=== PATIENT | male | born 1985 | race Hispanic/Latino ===

== ENCOUNTER 2022-10-17 15:50 | Inpatient (IN) | payer OTHER ==
[~2022-10-17] VITALS: Ht 167.6 cm; Wt 144.2 kg
[2022-10-17 16:57] LABS: BASOPHILS # (AUTO) 0.06 K/uL (0.00-0.20); BASOPHILS % (AUTO) 0.3 % (0.0-5.0); EOSINOPHILS # (AUTO) 0.11 K/uL (0.00-0.70); EOSINOPHILS % (AUTO) 0.5 % (0.0-8.0); IMMATURE GRANULOCYTE ABSOLUTE 0.34 K/uL (0-1); LYMPHOCYTES % (AUTO) 5.1 % (21.0-51.0); MEAN CORPUSCULAR HGB CONC 32.8 g/dL (32.0-36.0); MEAN CORPUSCULAR VOLUME 97.7 fL (79-99); MONOCYTES # (AUTO) 1.4 K/uL (0.1-1.0); MONOCYTES % (AUTO) 6.6 % (3.0-13.0); NEUTROPHILS # (AUTO) 17.5 K/uL (1.8-7.7); NEUTROPHILS % (AUTO) 85.8 % (40.0-77.0); NUCLEATED RED BLOOD CELLS 0.3 % (0.0-0.19); PLATELET COUNT (AUTO) 258 K/uL (130-400); RED BLOOD CELL COUNT(AUTO) 2.56 MIL/uL (4.50-6.20); WHITE BLOOD COUNT (AUTO) 20.4 K/uL (4.8-10.8)
[2022-10-17 17:17] LABS: ALBUMIN 1.3 g/dL (3.5-5.0); CREATININE 7.1 mg/dL (0.5-1.5); POTASSIUM 5.2 mmol/L (3.5-5.1); TOTAL PROTEIN, SERUM 7.5 g/dL (6.0-8.3)
[2022-10-17 17:23] LABS: BILIRUBIN,TOTAL 24.6 mg/dL (0.2-1.0)
[2022-10-17 18:03] LABS: INR 1.92 (0.85-1.15); PROTHROMBIN TIME 21.3 SEC (9.6-11.6)
[2022-10-17 18:05] LABS: PARTIAL THROMBOPLASTIN TIME 45.1 SEC (26.3-35.5)
[2022-10-17] MEDS ORDERED: NA ZIRCON CYCLOSIL(LOKELMA 10GM) PO ONE (19:30)
[2022-10-17] MEDS ORDERED: MAGNESIUM 2GM PREMIX 50ML 50 ML IV PRN (21:00)
[2022-10-17] MEDS ORDERED: HYDROCODONE/ACETAMINOPHEN 5/325 MG TAB PO PRN (21:00)
[2022-10-17] MEDS ORDERED: ONDANSETRON 4MG INJ IV PRN (21:00)
[2022-10-17] MEDS ORDERED: ACETAMINOPHEN 325 MG TAB PO PRN ×2 (21:00)
[2022-10-17] MEDS ORDERED: SODIUM CHLORIDE 1,000 MG TAB PO SCH (22:00)
[2022-10-17 23:00] VITALS: O2SAT 97
[2022-10-18] VITALS (8 sets, daily range): BP systolic 102–126; BP diastolic 52–85; PULSE 67–87; RESP 18–20; O2SAT 97–98
[2022-10-18 04:39] LABS: MAGNESIUM 2.4 mg/dL (1.80-2.40); PHOSPHORUS 8.9 mg/dL (2.5-4.9); POTASSIUM 5.1 mmol/L (3.5-5.1)
[2022-10-18 04:43] LABS: CREATININE 7.9 mg/dL (0.5-1.5)
[2022-10-18 05:35] LABS: BASOPHILS # (AUTO) 0.05 K/uL (0.00-0.20); BASOPHILS % (AUTO) 0.2 % (0.0-5.0); EOSINOPHILS # (AUTO) 0.12 K/uL (0.00-0.70); EOSINOPHILS % (AUTO) 0.6 % (0.0-8.0); IMMATURE GRANULOCYTE ABSOLUTE 0.33 K/uL (0-1); LYMPHOCYTES # (AUTO) 1.1 K/uL (1.0-4.8); LYMPHOCYTES % (AUTO) 5.7 % (21.0-51.0); MEAN CORPUSCULAR HEMOGLOBIN 32.4 pg (27.0-33.0); MEAN CORPUSCULAR HGB CONC 32.2 g/dL (32.0-36.0); MEAN CORPUSCULAR VOLUME 100.5 fL (79-99); MONOCYTES # (AUTO) 1.6 K/uL (0.1-1.0); MONOCYTES % (AUTO) 7.8 % (3.0-13.0); NEUTROPHILS # (AUTO) 16.9 K/uL (1.8-7.7); NEUTROPHILS % (AUTO) 84.1 % (40.0-77.0); NUCLEATED RED BLOOD CELLS 0.3 % (0.0-0.19); PLATELET COUNT (AUTO) 164 K/uL (130-400); RED BLOOD CELL COUNT(AUTO) 2.04 MIL/uL (4.50-6.20); RED CELL DISTRIBUTION WIDTH 17.7 % (11.0-15.5); WHITE BLOOD COUNT (AUTO) 20.1 K/uL (4.8-10.8)
[2022-10-18 05:37] LABS: HEMATOCRIT 20.5 % (42-54)
[2022-10-18] MEDS: LACTULOSE 20 GM/30 ML UDCUP PO SCH ×2 (08:18→21:06)
[2022-10-18] MEDS: SODIUM CHLORIDE 1,000 MG TAB PO SCH (08:18)
[2022-10-18] MEDS ORDERED: PHARMACY COMMUNICATION MISC PRN (09:00)
[2022-10-18] MEDS ORDERED: PANTOPRAZOLE 40 MG TAB DR PO SCH (09:00)
[2022-10-18 09:15] LABS: HEMATOCRIT 22.3 % (42-54); MEAN CORPUSCULAR HEMOGLOBIN 32.1 pg (27.0-33.0); MEAN CORPUSCULAR HGB CONC 32.3 g/dL (32.0-36.0); MEAN CORPUSCULAR VOLUME 99.6 fL (79-99); NUCLEATED RED BLOOD CELLS 0.3 % (0.0-0.19); RED BLOOD CELL COUNT(AUTO) 2.24 MIL/uL (4.50-6.20); RED CELL DISTRIBUTION WIDTH 17.7 % (11.0-15.5); WHITE BLOOD COUNT (AUTO) 21.1 K/uL (4.8-10.8)
[2022-10-18 09:28] LABS: ABG BASE EXCESS -6.9 mmol/L (-2.0-3.0); ABG HCO3 16.4 mmol/L (21.0-28.0); ABG OXYGEN SATURATION 95.6 % (95.0-99.0); ABG PCO2 28 mmHg (35-48); ABG PH 7.388 (7.350-7.450); DEVICE COMMENT LR EDDIE, RN; PO2, ARTERIAL BG 77.8 mmHg (83.0-108.0); VENT MODE, BG RA (ROOM AIR)
[2022-10-18 09:32] LABS: ALANINE AMINOTRANSFERASE 64 U/L (12-78); ASPARTATE AMINOTRANSFERASE 108 U/L (10-37); CARBON DIOXIDE 17 mmol/L (21-32); GLOMERULAR FILTR. RATE CALC 8 mL/min (>90); GLUCOSE,RANDOM 82 mg/dL (70-105); SODIUM SERUM 116 mmol/L (136-145); TOTAL PROTEIN, SERUM 6.9 g/dL (6.0-8.3)
[2022-10-18 09:33] LABS: SALICYLATE < 2.8 mg/dL (2.8-20.0)
[2022-10-18 09:34] LABS: ACETAMINOPHEN < 1 mcg/mL (10-29)
[2022-10-18 09:35] LABS: BILIRUBIN,TOTAL 22.5 mg/dL (0.2-1.0); CHLORIDE 84 mmol/L (101-111); UREA NITROGEN, BLOOD 81 mg/dL (7-18)
[2022-10-18] MEDS: PANTOPRAZOLE 40 MG/VIAL IVP SCH ×2 (11:04→21:06)
[2022-10-18] MEDS: CEFTRIAXONE 2GM VIAL IVPB SCH (11:04)
[2022-10-18] MEDS: ALBUMIN (HUMAN) 5% 250 ML IV SCH (11:23)
[2022-10-18] MEDS: OCTREOTIDE ACETATE 500 MCG in 0.9%NACL 100ML 97.5 ML IV SCH (11:26)
[2022-10-18] MEDS: SEVELAMER HCL 800 MG TABLET PO SCH ×2 (12:40→17:07)
[2022-10-18] MEDS: MIDODRINE HCL 5 MG TABLET PO SCH ×3 (14:00→21:06)
[2022-10-18 22:16] LABS: HEPATITIS A IGM ANTIBODY Non-Reactive (Nonreactive); HEPATITIS B CORE IGM ANTIBODY Non-Reactive (Negative); HEPATITIS B SURFACE ANTIGEN Non-Reactive (Nonreactive); HEPATITIS C ANTIBODY Non-Reactive (Nonreactive)
[2022-10-19] VITALS (8 sets, daily range): BP systolic 99–136; BP diastolic 60–66; PULSE 80–90; RESP 18–20; O2SAT 97
[2022-10-19 05:13] LABS: BASOPHILS # (AUTO) 0.04 K/uL (0.00-0.20); BASOPHILS % (AUTO) 0.2 % (0.0-5.0); EOSINOPHILS # (AUTO) 0.07 K/uL (0.00-0.70); EOSINOPHILS % (AUTO) 0.3 % (0.0-8.0); HEMATOCRIT 22.8 % (42-54); IMMATURE GRANULOCYTE ABSOLUTE 0.55 K/uL (0-1); LYMPHOCYTES # (AUTO) 0.8 K/uL (1.0-4.8); LYMPHOCYTES % (AUTO) 3.6 % (21.0-51.0); MEAN CORPUSCULAR HEMOGLOBIN 32.7 pg (27.0-33.0); MEAN CORPUSCULAR HGB CONC 32.5 g/dL (32.0-36.0); MEAN CORPUSCULAR VOLUME 100.9 fL (79-99); MONOCYTES # (AUTO) 1.2 K/uL (0.1-1.0); MONOCYTES % (AUTO) 5.3 % (3.0-13.0); NEUTROPHILS # (AUTO) 19.6 K/uL (1.8-7.7); NEUTROPHILS % (AUTO) 88.1 % (40.0-77.0); NUCLEATED RED BLOOD CELLS 0.3 % (0.0-0.19); PLATELET COUNT (AUTO) 217 K/uL (130-400); RED BLOOD CELL COUNT(AUTO) 2.26 MIL/uL (4.50-6.20); RED CELL DISTRIBUTION WIDTH 17.5 % (11.0-15.5); WHITE BLOOD COUNT (AUTO) 22.2 K/uL (4.8-10.8)
[2022-10-19] MEDS: OCTREOTIDE ACETATE 500 MCG in 0.9%NACL 100ML 97.5 ML IV SCH (05:21)
[2022-10-19 05:34] LABS: ALBUMIN 1.3 g/dL (3.5-5.0); MAGNESIUM 2.5 mg/dL (1.80-2.40); PHOSPHORUS 9.5 mg/dL (2.5-4.9); POTASSIUM 5.3 mmol/L (3.5-5.1)
[2022-10-19 05:37] LABS: % IRON SATURATION 25.5 % (30-44)
[2022-10-19 05:42] LABS: BILIRUBIN,TOTAL 24.7 mg/dL (0.2-1.0); CREATININE 9.4 mg/dL (0.5-1.5)
[2022-10-19] MEDS: SEVELAMER HCL 800 MG TABLET PO SCH ×3 (08:12→17:15)
[2022-10-19] MEDS: SODIUM CHLORIDE 1,000 MG TAB PO SCH (08:47)
[2022-10-19] MEDS: MIDODRINE HCL 5 MG TABLET PO SCH ×3 (08:47→20:16)
[2022-10-19] MEDS: CEFTRIAXONE 2GM VIAL IVPB SCH (08:47)
[2022-10-19] MEDS: PANTOPRAZOLE 40 MG/VIAL IVP SCH ×2 (08:47→20:16)
[2022-10-19] MEDS: LACTULOSE 20 GM/30 ML UDCUP PO SCH ×2 (08:47→20:15)
[2022-10-19] MEDS: ALBUMIN (HUMAN) 5% 250 ML IV SCH (10:47)
[2022-10-19 21:18] LABS: SARS-CoV-2, RNA, NAAT NEGATIVE SARS CoV-2 (NEGATIVE)
[2022-10-20] VITALS (8 sets, daily range): BP systolic 103–137; BP diastolic 52–61; PULSE 78–85; RESP 16–20; O2SAT 95–97
[2022-10-20] MEDS: CHLORDIAZEPOXIDE HCL 25 MG CAP PO PRN (02:08)
[2022-10-20] MEDS: OCTREOTIDE ACETATE 500 MCG in 0.9%NACL 100ML 97.5 ML IV SCH (02:20)
[2022-10-20 04:26] LABS: BASOPHILS # (AUTO) 0.04 K/uL (0.00-0.20); BASOPHILS % (AUTO) 0.2 % (0.0-5.0); EOSINOPHILS # (AUTO) 0.15 K/uL (0.00-0.70); EOSINOPHILS % (AUTO) 0.6 % (0.0-8.0); HEMATOCRIT 22.7 % (42-54); IMMATURE GRANULOCYTE ABSOLUTE 0.73 K/uL (0-1); LYMPHOCYTES # (AUTO) 1.1 K/uL (1.0-4.8); LYMPHOCYTES % (AUTO) 4.4 % (21.0-51.0); MEAN CORPUSCULAR HEMOGLOBIN 32.3 pg (27.0-33.0); MEAN CORPUSCULAR HGB CONC 32.6 g/dL (32.0-36.0); MEAN CORPUSCULAR VOLUME 99.1 fL (79-99); MONOCYTES # (AUTO) 1.3 K/uL (0.1-1.0); MONOCYTES % (AUTO) 5.5 % (3.0-13.0); NEUTROPHILS # (AUTO) 20.9 K/uL (1.8-7.7); NEUTROPHILS % (AUTO) 86.3 % (40.0-77.0); NUCLEATED RED BLOOD CELLS 0.5 % (0.0-0.19); PLATELET COUNT (AUTO) 224 K/uL (130-400); RED BLOOD CELL COUNT(AUTO) 2.29 MIL/uL (4.50-6.20); RED CELL DISTRIBUTION WIDTH 17.5 % (11.0-15.5); WHITE BLOOD COUNT (AUTO) 24.2 K/uL (4.8-10.8)
[2022-10-20 04:40] LABS: INR 2.04 (0.85-1.15); PROTHROMBIN TIME 22.6 SEC (9.6-11.6)
[2022-10-20 05:12] LABS: ALBUMIN 1.4 g/dL (3.5-5.0); MAGNESIUM 2.6 mg/dL (1.80-2.40); POTASSIUM 5.1 mmol/L (3.5-5.1); THYROID STIMULATING HORMONE 0.38 uIU/mL (0.36-3.74)
[2022-10-20 05:34] LABS: BILIRUBIN,TOTAL 25.2 mg/dL (0.2-1.0); CREATININE 9.9 mg/dL (0.5-1.5)
[2022-10-20 06:07] LABS: URIC ACID 12.7 mg/dL (2.6-7.2)
[2022-10-20] MEDS: SEVELAMER HCL 800 MG TABLET PO SCH ×3 (08:00→17:00)
[2022-10-20] MEDS: PANTOPRAZOLE 40 MG/VIAL IVP SCH ×2 (08:35→20:57)
[2022-10-20] MEDS: LORAZEPAM 2 MG/ML 1 ML VIAL IVP PRN (08:35)
[2022-10-20] MEDS: CEFTRIAXONE 2GM VIAL IVPB SCH (08:36)
[2022-10-20] MEDS: SODIUM CHLORIDE 1,000 MG TAB PO SCH (09:00)
[2022-10-20] MEDS: MIDODRINE HCL 5 MG TABLET PO SCH ×3 (09:00→21:00)
[2022-10-20] MEDS: LACTULOSE 20 GM/30 ML UDCUP PO SCH (09:00)
[2022-10-20] MEDS: ALBUMIN (HUMAN) 5% 250 ML IV SCH (10:41)
[2022-10-20] MEDS: HYDROMORPHONE 0.5 MG SYG (0.5MG/0.5ML) IV PRN (21:43)
[2022-10-20] MEDS: LACTULOSE 20 GM/30 ML UDCUP PR SCH (22:36)
[2022-10-21] VITALS (46 sets, daily range): BP systolic 84–138; BP diastolic 37–77; PULSE 76–95; RESP 10–40; O2SAT 97–98
[2022-10-21] MEDS ORDERED: NOREPINEPHRIN 4MG/NS 250ML 250 ML IV ONE (01:16)
[2022-10-21] MEDS ORDERED: NOREPINEPHRINE BITARTRATE 32 MG in 0.9% NACL 250ML 250 ML IV SCH (01:30)
[2022-10-21] MEDS: HYDROMORPHONE 0.5 MG SYG (0.5MG/0.5ML) IV PRN (03:10)
[2022-10-21] MEDS: OCTREOTIDE ACETATE 500 MCG in 0.9%NACL 100ML 97.5 ML IV SCH (03:18)
[2022-10-21 05:08] LABS: BASOPHILS # (AUTO) 0.05 K/uL (0.00-0.20); BASOPHILS % (AUTO) 0.2 % (0.0-5.0); EOSINOPHILS # (AUTO) 0.31 K/uL (0.00-0.70); EOSINOPHILS % (AUTO) 1.3 % (0.0-8.0); IMMATURE GRANULOCYTE ABSOLUTE 0.54 K/uL (0-1); LYMPHOCYTES # (AUTO) 1.2 K/uL (1.0-4.8); LYMPHOCYTES % (AUTO) 5.3 % (21.0-51.0); MONOCYTES # (AUTO) 1.4 K/uL (0.1-1.0); MONOCYTES % (AUTO) 5.8 % (3.0-13.0); NEUTROPHILS # (AUTO) 19.9 K/uL (1.8-7.7); NEUTROPHILS % (AUTO) 85.1 % (40.0-77.0); NUCLEATED RED BLOOD CELLS 0.4 % (0.0-0.19); PLATELET COUNT (AUTO) 157 K/uL (130-400); RED BLOOD CELL COUNT(AUTO) 1.88 MIL/uL (4.50-6.20); RED CELL DISTRIBUTION WIDTH 17.5 % (11.0-15.5); WHITE BLOOD COUNT (AUTO) 23.4 K/uL (4.8-10.8)
[2022-10-21 05:16] LABS: HEMATOCRIT 18.8 % (42-54)
[2022-10-21 05:28] LABS: ALBUMIN 1.2 g/dL (3.5-5.0); POTASSIUM 5.3 mmol/L (3.5-5.1)
[2022-10-21 05:42] LABS: BILIRUBIN,TOTAL 22.2 mg/dL (0.2-1.0); CREATININE 10.7 mg/dL (0.5-1.5)
[2022-10-21] MEDS: SEVELAMER HCL 800 MG TABLET PO SCH ×3 (08:00→17:00)
[2022-10-21] MEDS: MIDODRINE HCL 5 MG TABLET PO SCH ×3 (08:21→19:36)
[2022-10-21] MEDS: LACTULOSE 20 GM/30 ML UDCUP PR SCH ×3 (08:22→20:02)
[2022-10-21 08:35] LABS: ABG BASE EXCESS -9.8 mmol/L (-2.0-3.0); ABG HCO3 14.7 mmol/L (21.0-28.0); ABG OXYGEN SATURATION 95.8 % (95.0-99.0); ABG PCO2 27 mmHg (35-48); ABG PH 7.358 (7.350-7.450); CARBON MONOXIDE 2.9; HHb 4.1; PO2, ARTERIAL BG 83.1 mmHg (83.0-108.0); VENT MODE, BG RA (ROOM AIR)
[2022-10-21 08:59] LABS: BASOPHILS # (AUTO) 0.08 K/uL (0.00-0.20); BASOPHILS % (AUTO) 0.3 % (0.0-5.0); EOSINOPHILS # (AUTO) 0.34 K/uL (0.00-0.70); EOSINOPHILS % (AUTO) 1.3 % (0.0-8.0); IMMATURE GRANULOCYTE ABSOLUTE 0.54 K/uL (0-1); LYMPHOCYTES # (AUTO) 1.6 K/uL (1.0-4.8); LYMPHOCYTES % (AUTO) 6.1 % (21.0-51.0); MEAN CORPUSCULAR HGB CONC 31.9 g/dL (32.0-36.0); MEAN CORPUSCULAR VOLUME 100.5 fL (79-99); MONOCYTES # (AUTO) 1.5 K/uL (0.1-1.0); MONOCYTES % (AUTO) 6.1 % (3.0-13.0); NEUTROPHILS # (AUTO) 21.2 K/uL (1.8-7.7); NEUTROPHILS % (AUTO) 84.1 % (40.0-77.0); NUCLEATED RED BLOOD CELLS 0.5 % (0.0-0.19); PLATELET COUNT (AUTO) 163 K/uL (130-400); RED BLOOD CELL COUNT(AUTO) 2.03 MIL/uL (4.50-6.20); RED CELL DISTRIBUTION WIDTH 17.7 % (11.0-15.5); WHITE BLOOD COUNT (AUTO) 25.2 K/uL (4.8-10.8)
[2022-10-21] MEDS ORDERED: GLUCAGON 1MG KIT 1 MG ML IM PRN (09:00)
[2022-10-21] MEDS ORDERED: PANTOPRAZOLE 40MG INJ 80 MG in 0.9%NACL 100ML 100 ML IVP SCH (09:00)
[2022-10-21] MEDS ORDERED: DEXTROSE 50%-WATER 50 ML DISP.SYRIN IV PRN (09:00)
[2022-10-21] MEDS ORDERED: SODIUM BICARB 50MEQ 50ML VIAL IV ONE (09:00)
[2022-10-21] MEDS: CEFTRIAXONE 2GM VIAL IVPB SCH (09:10)
[2022-10-21] MEDS: ALBUMIN (HUMAN) 25% 100 ML IV SCH ×3 (09:10→20:02)
[2022-10-21] MEDS: 0.9%NACL 10ML VIAL IV SCH ×2 (09:15→20:02)
[2022-10-21] MEDS: SODIUM BICARB 8.4% 50ML SYRING 150 MEQ in 0.9%NACL 1000ML 1,000 ML IVP SCH ×2 (09:15→23:52)
[2022-10-21 09:27] LABS: HEMATOCRIT 20.4 % (42-54)
[2022-10-21 09:42] LABS: INR 2.2 (0.85-1.15); PROTHROMBIN TIME 24.2 SEC (9.6-11.6)
[2022-10-21 09:43] LABS: PARTIAL THROMBOPLASTIN TIME 64.1 SEC (26.3-35.5)
[2022-10-21] MEDS ORDERED: COMPOUND IV REFRIGERATED 1 EACH IVSOLN MISC PRN (11:30)
[2022-10-21 13:26] LABS: APPEARANCE,URINE CLOUDY (CLEAR); BILIRUBIN,URINE 4 mg/dL (NEGATIVE); COLOR,URINE DARK-YELLOW (YELLOW); GLUCOSE, URINE (UA) NEGATIVE (NEGATIVE); KETONES,URINE NEGATIVE (NEGATIVE); LEUKOCYTE ESTERASE ,URINE 25 Leu/uL (NEGATIVE); NITRATE,URINE NEGATIVE (NEGATIVE); OCCULT BLOOD,URINE LARGE (NEGATIVE); PH,URINE 5.5 (5.0-8.0); PROTEIN,URINE 30 mg/dL (NEGATIVE); UROBILINOGEN,URINE 0.2 mg/dL (0.2-1.0)
[2022-10-21 13:30] LABS: ADD UA MICROSCOPIC YES
[2022-10-21 14:09] LABS: BACTERIA,URINE RARE /HPF (None Seen); MUCUS,URINE RARE LPF (None Seen); NON-SQUAMOUS EPITHELIAL CELL 1 /HPF (0-2); RBC,URINE 26-50 /HPF (0-1); SQUAMOUS EPITHELIAL CELL,UR FEW /HPF (0-2); UNCLASSIFIED CRYSTAL 6 /HPF (None Seen); WBC CLUMP MANY /HPF (0-1)
[2022-10-21] MEDS: PHYTONADIONE 10 MG in 0.9%NACL 50ML 50 ML IVPB SCH (14:59)
[2022-10-21 16:34] LABS: ALBUMIN 1.8 g/dL (3.5-5.0); POTASSIUM 5.1 mmol/L (3.5-5.1); TOTAL PROTEIN, SERUM 6.3 g/dL (6.0-8.3)
[2022-10-21 16:48] LABS: BILIRUBIN,TOTAL 24.9 mg/dL (0.2-1.0); CREATININE 11.2 mg/dL (0.5-1.5)
[2022-10-21] MEDS: LACTULOSE 20 GM/30 ML UDCUP PO SCH ×2 (17:00→19:37)
[2022-10-21 19:12] LABS: CHLORIDE,URINE RANDOM 23 mmol/L (110-250); POTASSIUM,URINE RANDOM 45 mmol/L (25-125); SODIUM,URINE RANDOM < 14 mmol/l (40-220)
[2022-10-21 19:18] LABS: AMPHET/METH SCREEN,URINE NEGATIVE (NEGATIVE); BARBITURATE SCREEN, URINE NEGATIVE (NEGATIVE); BENZODIAZEPINES SCREEN,URINE NEGATIVE (NEGATIVE); CANNABINOID SCREEN,URINE NEGATIVE (NEGATIVE); COCAINE SCREEN,URINE NEGATIVE (NEGATIVE); OPIATE SCREEN,URINE NEGATIVE (NEGATIVE); PHENCYCLIDINE SCREEN,URINE NEGATIVE (NEGATIVE)
[2022-10-21] MEDS: PANTOPRAZOLE 40 MG/VIAL IVP SCH (20:02)
[2022-10-22] VITALS (74 sets, daily range): BP systolic 80–130; BP diastolic 29–67; PULSE 60–162; RESP 10–88; TEMP 98.5; O2SAT 98
[2022-10-22] MEDS: ALBUMIN (HUMAN) 25% 100 ML IV SCH ×3 (03:19→14:39)
[2022-10-22 04:27] LABS: MEAN CORPUSCULAR HEMOGLOBIN 32.1 pg (27.0-33.0); MEAN CORPUSCULAR HGB CONC 33.3 g/dL (32.0-36.0); MEAN CORPUSCULAR VOLUME 96.3 fL (79-99); NUCLEATED RED BLOOD CELLS 0.3 % (0.0-0.19); RED BLOOD CELL COUNT(AUTO) 2.18 MIL/uL (4.50-6.20); RED CELL DISTRIBUTION WIDTH 17.8 % (11.0-15.5); WHITE BLOOD COUNT (AUTO) 25.8 K/uL (4.8-10.8)
[2022-10-22 04:42] LABS: INR 2.33 (0.85-1.15); PROTHROMBIN TIME 25.6 SEC (9.6-11.6)
[2022-10-22] MEDS: LACTULOSE 20 GM/30 ML UDCUP PO SCH ×4 (04:45→23:25)
[2022-10-22 05:03] LABS: ALBUMIN 2.1 g/dL (3.5-5.0); MAGNESIUM 2.6 mg/dL (1.80-2.40); TOTAL PROTEIN, SERUM 6.2 g/dL (6.0-8.3)
[2022-10-22 05:19] LABS: BILIRUBIN,TOTAL 26.8 mg/dL (0.2-1.0); CREATININE 11.4 mg/dL (0.5-1.5)
[2022-10-22] MEDS: OCTREOTIDE ACETATE 500 MCG in 0.9%NACL 100ML 97.5 ML IV SCH (07:00)
[2022-10-22] MEDS: SEVELAMER HCL 800 MG TABLET PO SCH ×3 (07:40→16:13)
[2022-10-22] MEDS: MIDODRINE HCL 5 MG TABLET PO SCH ×3 (07:41→21:28)
[2022-10-22] MEDS: PANTOPRAZOLE 40 MG/VIAL IVP SCH ×2 (08:13→21:28)
[2022-10-22] MEDS: CEFTRIAXONE 2GM VIAL IVPB SCH (08:13)
[2022-10-22] MEDS: 0.9%NACL 10ML VIAL IV SCH ×2 (08:13→21:29)
[2022-10-22] MEDS: PHYTONADIONE 10 MG in 0.9%NACL 50ML 50 ML IVPB SCH (08:13)
[2022-10-22] MEDS: LACTULOSE 20 GM/30 ML UDCUP PR SCH ×2 (08:14→09:00)
[2022-10-22] MEDS ORDERED: PHYTONADIONE 10 MG in 0.9%NACL 50ML 50 ML IVPB SCH (09:00)
[2022-10-22] MEDS ORDERED: SODIUM BICARB 50MEQ 50ML VIAL IV ONE (11:00)
[2022-10-22] MEDS ORDERED: LIDOCAINE HCL 400MG/20ML VIAL ONE (12:27)
[2022-10-22] MEDS ORDERED: PROPOFOL 10 MG/ML 20ML VIAL IV ONE ×2 (12:27→12:55)
[2022-10-22 12:31] LABS: HEMATOCRIT 24.1 % (42-54)
[2022-10-22] MEDS ORDERED: PHENYLEPHRINE HCL 10 MG/ML 1ML VIAL IV ONE (13:03)
[2022-10-22] MEDS: SODIUM BICARB 8.4% 50ML SYRING 150 MEQ in DEXTROSE 5%-WATER 1,000 ML IVP SCH (13:09)
[2022-10-22] MEDS: SODIUM BICARB 8.4% 50ML SYRING 150 MEQ in 0.9%NACL 1000ML 1,000 ML IVP SCH (13:09)
[2022-10-22] MEDS ORDERED: LIDOCAINE HCL MPF 1% 5ML VIAL ONE (13:56)
[2022-10-22] MEDS ORDERED: MIDAZOLAM HCL 1 MG/ML 2ML VIAL ONE (14:06)
[2022-10-22] MEDS ORDERED: FENTANYL CITRATE PF 50 MCG/1 ML 2ML VIAL ONE (14:07)
[2022-10-22] MEDS: NOREPINEPHRIN 4MG/NS 250ML 250 ML IV PRN ×2 (15:25→23:27)
[2022-10-22] MEDS: CHLORDIAZEPOXIDE HCL 25 MG CAP PO PRN (16:13)
[2022-10-22] MEDS ORDERED: DEXMEDETOMIDINE 400MCG/NS100ML IV ONE (17:20)
[2022-10-22] MEDS: DEXMEDETOMIDINE 400MCG/NS100ML IV SCH ×2 (19:35→22:22)
[2022-10-22] MEDS ORDERED: THIAMINE HCL 100 MG/ML 2ML VIAL IVP ONE (21:00)
[2022-10-23] VITALS (70 sets, daily range): BP systolic 90–147; BP diastolic 40–74; PULSE 60–75; RESP 10–19; TEMP 98.3; O2SAT 98–100
[2022-10-23] MEDS: OCTREOTIDE ACETATE 500 MCG in 0.9%NACL 100ML 97.5 ML IV SCH (02:32)
[2022-10-23] MEDS: SODIUM BICARB 8.4% 50ML SYRING 150 MEQ in DEXTROSE 5%-WATER 1,000 ML IVP SCH ×2 (02:33→16:56)
[2022-10-23 04:13] LABS: BASOPHILS # (AUTO) 0.08 K/uL (0.00-0.20); BASOPHILS % (AUTO) 0.3 % (0.0-5.0); EOSINOPHILS # (AUTO) 0.43 K/uL (0.00-0.70); EOSINOPHILS % (AUTO) 1.5 % (0.0-8.0); IMMATURE GRANULOCYTE ABSOLUTE 0.48 K/uL (0-1); LYMPHOCYTES # (AUTO) 1.3 K/uL (1.0-4.8); LYMPHOCYTES % (AUTO) 4.4 % (21.0-51.0); MEAN CORPUSCULAR HEMOGLOBIN 31.9 pg (27.0-33.0); MEAN CORPUSCULAR HGB CONC 33.9 g/dL (32.0-36.0); MONOCYTES # (AUTO) 1.7 K/uL (0.1-1.0); MONOCYTES % (AUTO) 5.9 % (3.0-13.0); NEUTROPHILS # (AUTO) 25.4 K/uL (1.8-7.7); NEUTROPHILS % (AUTO) 86.3 % (40.0-77.0); NUCLEATED RED BLOOD CELLS 0.4 % (0.0-0.19); PLATELET COUNT (AUTO) 92 K/uL (130-400); RED BLOOD CELL COUNT(AUTO) 2.98 MIL/uL (4.50-6.20); RED CELL DISTRIBUTION WIDTH 18.7 % (11.0-15.5); WHITE BLOOD COUNT (AUTO) 29.4 K/uL (4.8-10.8)
[2022-10-23] MEDS: ALBUMIN (HUMAN) 25% 100 ML IV SCH ×3 (04:13→20:10)
[2022-10-23 04:30] LABS: INR 2.01 (0.85-1.15); PROTHROMBIN TIME 22.3 SEC (9.6-11.6)
[2022-10-23 04:32] LABS: % IRON SATURATION 60.4 % (30-44)
[2022-10-23] MEDS: LACTULOSE 20 GM/30 ML UDCUP PO SCH ×4 (04:38→22:10)
[2022-10-23 05:11] LABS: ALANINE AMINOTRANSFERASE 49 U/L (12-78); ALBUMIN 2.4 g/dL (3.5-5.0); AMMONIA 69 umol/L (11-32); ASPARTATE AMINOTRANSFERASE 84 U/L (10-37); CARBON DIOXIDE 22 mmol/L (21-32); GLOMERULAR FILTR. RATE CALC 7 mL/min (>90); GLUCOSE,RANDOM 115 mg/dL (70-105); HDL CHOLESTEROL 12 mg/dL (29-71); LDL DIRECT 23 mg/dL (0-99); POTASSIUM 4.2 mmol/L (3.5-5.1); SODIUM SERUM 125 mmol/L (136-145); TOTAL PROTEIN, SERUM 6.5 g/dL (6.0-8.3); TRIGLYCERIDES 125 mg/dL (30-200)
[2022-10-23 05:30] LABS: BILIRUBIN,TOTAL 30.2 mg/dL (0.2-1.0)
[2022-10-23 05:31] LABS: CHLORIDE 88 mmol/L (101-111); CREATININE 9.6 mg/dL (0.5-1.5); UREA NITROGEN, BLOOD 96 mg/dL (7-18)
[2022-10-23 05:36] LABS: CHOLESTEROL < 50 mg/dL (<200)
[2022-10-23] MEDS: NOREPINEPHRIN 4MG/NS 250ML 250 ML IV PRN (06:14)
[2022-10-23] MEDS ORDERED: TRAMADOL HCL 50 MG TABLET PO PRN (08:10)
[2022-10-23] MEDS ORDERED: TRAMADOL HCL 50 MG TABLET ONE (08:16)
[2022-10-23] MEDS: PANTOPRAZOLE 40 MG/VIAL IVP SCH ×2 (08:24→20:11)
[2022-10-23] MEDS: CEFTRIAXONE 2GM VIAL IVPB SCH (08:25)
[2022-10-23] MEDS: SEVELAMER HCL 800 MG TABLET PO SCH ×3 (08:25→16:56)
[2022-10-23] MEDS: MIDODRINE HCL 5 MG TABLET PO SCH ×3 (08:26→20:11)
[2022-10-23] MEDS: 0.9%NACL 10ML VIAL IV SCH ×2 (08:27→22:06)
[2022-10-23] MEDS: PHYTONADIONE 10 MG in 0.9%NACL 50ML 50 ML IVPB SCH (08:27)
[2022-10-23] MEDS: M.V.I. IV [ADULT] 10 ML, FOLIC ACID 1 MG, THIAMINE HCL 100 MG in 0.9%NACL 1000ML 1,000 ML IV SCH (12:14)
[2022-10-23] MEDS: DEXMEDETOMIDINE 400MCG/NS100ML IV SCH (12:20)
[2022-10-23] MEDS ORDERED: LORAZEPAM 2 MG/ML 1 ML VIAL IVP PRN (14:30)
[2022-10-23] MEDS ORDERED: MORPHINE 2 MG SYG ONE ×2 (14:52→16:33)
[2022-10-23] MEDS: LORAZEPAM 2 MG/ML 1 ML VIAL IVP PRN (14:55)
[2022-10-23] MEDS: MORPHINE 2 MG SYG IVP PRN ×4 (15:42→22:05)
[2022-10-23] MEDS ORDERED: LORAZEPAM 2 MG/ML 1 ML VIAL ONE (16:33)
[2022-10-23] MEDS: LACTULOSE 20 GM/30 ML UDCUP PR SCH (16:55)
[2022-10-24] MEDS: MORPHINE 2 MG SYG IVP PRN (02:04)
[2022-10-24] MEDS: LACTULOSE 20 GM/30 ML UDCUP PO SCH ×4 (04:28→23:00)
[2022-10-24 08:16] LABS: HEPATITIS Bs ANTIGEN SCREEN P Negative (Negative)
[2022-10-24] MEDS: CEFTRIAXONE 2GM VIAL IVPB SCH (08:30)
[2022-10-24] MEDS: SODIUM BICARB 8.4% 50ML SYRING 150 MEQ in DEXTROSE 5%-WATER 1,000 ML IVP SCH ×2 (08:45→23:32)
[2022-10-24] MEDS: PHYTONADIONE 10 MG in 0.9%NACL 50ML 50 ML IVPB SCH (09:00)
[2022-10-24] MEDS: 0.9%NACL 10ML VIAL IV SCH ×2 (09:00→21:00)
[2022-10-24] MEDS: M.V.I. IV [ADULT] 10 ML, FOLIC ACID 1 MG, THIAMINE HCL 100 MG in 0.9%NACL 1000ML 1,000 ML IV SCH (09:00)
[2022-10-24] MEDS: LACTULOSE 20 GM/30 ML UDCUP PR SCH (09:00)
[2022-10-24] MEDS: PANTOPRAZOLE 40 MG/VIAL IVP SCH ×2 (09:00→21:00)
[2022-10-24] MEDS: MIDODRINE HCL 5 MG TABLET PO SCH ×3 (09:00→21:00)
[2022-10-24 20:00] VITALS: O2SAT 99
[2022-10-25] MEDS: LACTULOSE 20 GM/30 ML UDCUP PO SCH (03:45)
[2022-10-25 04:06] VITALS: BP 110/60; PULSE 107; RESP 24
== END 2022-10-25 10:30 | DRG 871 ==
LOC: EDH 15:50 → EDHIP 15:51 → UNDOADMIN 15:51 → EDHIP 15:52 → 2DH 22:46 → EDHIP 22:46 → 2CH 10-21 01:44 → 3CH 10-23 21:30
PROVIDERS: ADMIT Internal Medicine; ATTEND Internal Medicine
PROC: 30233N1 Transfusion of Nonautologous Red Blood Cells into Peripheral Vein, Percutaneous Approach (ICD-10-PCS; 2022-10-21)
PROC: 02HV33Z Insertion of Infusion Device into Superior Vena Cava, Percutaneous Approach (ICD-10-PCS; principal; 2022-10-22)
PROC: B548ZZA Ultrasonography of Superior Vena Cava, Guidance (ICD-10-PCS; 2022-10-22)
PROC: 0W3P8ZZ Control Bleeding in Gastrointestinal Tract, Via Natural or Artificial Opening Endoscopic (ICD-10-PCS; 2022-10-22)
PROC: 30233K1 Transfusion of Nonautologous Frozen Plasma into Peripheral Vein, Percutaneous Approach (ICD-10-PCS; 2022-10-22)
DX: A41.9 Sepsis, unspecified organism (principal); G92.8 Other toxic encephalopathy; K76.7 Hepatorenal syndrome; N17.0 Acute kidney failure with tubular necrosis; R65.21 Severe sepsis with septic shock; K65.2 Spontaneous bacterial peritonitis; I85.11 Secondary esophageal varices with bleeding; K31.811 Angiodysplasia of stomach and duodenum with bleeding; J90 Pleural effusion, not elsewhere classified; E87.1 Hypo-osmolality and hyponatremia; D62 Acute posthemorrhagic anemia; D68.9 Coagulation defect, unspecified; E87.20 Acidosis, unspecified; Z68.42 Body mass index [BMI] 45.0-49.9, adult; K76.6 Portal hypertension; N18.9 Chronic kidney disease, unspecified; E87.5 Hyperkalemia; E61.1 Iron deficiency; E66.01 Morbid (severe) obesity due to excess calories; E86.1 Hypovolemia; F10.10 Alcohol abuse, uncomplicated; F17.210 Nicotine dependence, cigarettes, uncomplicated; I12.9 Hypertensive chronic kidney disease with stage 1 through stage 4 chronic kidney disease, or unspecified chronic kidney disease; K64.9 Unspecified hemorrhoids; K70.31 Alcoholic cirrhosis of liver with ascites; K70.40 Alcoholic hepatic failure without coma; K76.82 Hepatic encephalopathy; Z20.822 Contact with and (suspected) exposure to COVID-19; Z66 Do not resuscitate; K31.89 Other diseases of stomach and duodenum; Z79.899 Other long term (current) drug therapy
CPT/HCPCS: 36415; 36430; 36600; 36800; 43255; 71045; 74176; 76705; 80048; 80051; 80053; 80061; 80074; 80305; 81001; 82140; 82435; 82533; 82550; 82803; 82947; 82948; 83540; 83550; 83605; 83735; 83880; 83930; 83935; 84100; 84132; 84145; 84295; 84443; 84484; 84550; 85014; 85018; 85025; 85027; 85384; 85610; 85730; 86701; 86704; 86706; 86850; 86900; 86901; 86923; 86927; 87040; 87088; 87340; 87390; 87635; 90935; 93005; A4606; C1752; C1894; C9113; G0378; G0481; J0696; J1170; J2060; J2250; J2270; J2354; J2371; J2704; J3010; J3411; J3430; J3490; J7030; J7070; P9016; P9017; P9045; P9046; A4215; A4216; A4222; A4223; A4600; A4620; A7002